=== PATIENT | female | born 1980 | race Caucasian/White ===

== ENCOUNTER 2023-05-21 15:22 | Emergency (ER) | payer BC ==
[~2023-05-21] VITALS: Ht 157.5 cm; Wt 59.0 kg
[2023-05-21 16:40] VITALS: PULSE 97; RESP 21; O2SAT 97
[2023-05-21] MEDS: IPRATROPIUM BROMIDE (0.02%) 0.5MG/2.5ML NEB HHN STA (16:40)
[2023-05-21] MEDS: ALBUTEROL (0.083%) 2.5MG/3ML NEB HHN STA (16:40)
[2023-05-21 17:07] LABS: HEMATOCRIT. 43.6 % (36.0-48.0); MEAN CORPUSCULAR HGB CONC 34.5 g/dL (31.0-37.0); MEAN CORPUSCULAR VOLUME 84.1 fL (81.0-99.0); MEAN PLATELET VOLUME 8.9 fl (7.4-10.4); PLATELET 317 x1000/uL (130-400); RED BLOOD CELL COUNT 5.19 mill/uL (4.2-5.4); RED CELL DISTRIBUTION WIDTH 12.8 % (11.6-14.6); WHITE BLOOD COUNT 13.9 x1000/uL (4.5-11.0)
[2023-05-21 17:08] LABS: DIFFERENTIAL COMMENT 1
[2023-05-21 17:20] LABS: PLATELET ESTIMATE NORMAL
[2023-05-21 17:22] LABS: HCG SCREEN NEGATIVE
[2023-05-21] MEDS: SODIUM CHLORIDE 0.9% 1,000 ML IV ONE (17:22)
[2023-05-21 18:29] LABS: ALANINE AMINOTRANSFERASE 18 IU/L (10-49); ALBUMIN 4.7 g/dL (3.2-4.8); ASPARTATE AMINOTRANSFERASE 20 IU/L (<34); BILIRUBIN TOTAL 0.6 mg/dL (0.1-1.0); CALCIUM 8.7 mg/dL (8.7-10.4); CARBON DIOXIDE 22 mEq/L (21-32); CHLORIDE 106 mEq/L (98-107); GLUCOSE 175 mg/dL (70-105); POTASSIUM 3.4 mEq/L (3.5-5.1); PROTEIN TOTAL 7.1 g/dL (6.0-8.3); SODIUM 139 mEq/L (136-145); UREA NITROGEN BLOOD 12 mg/dL (9-23)
[2023-05-21 18:31] LABS: TROPONIN I HIGH SENSITIVITY < 4 ng/L (3.0-34)
[2023-05-21 18:44] LABS: BG CARBOXYHEMOGLOBIN 0.3 % (0.5-1.5); BG DEOXYHEMOGLOBIN 2.1 % (0.0-5.0); BG FRACTION INSPIRED OXYGEN 21; BG HCO3 ACT 20.2 mmol/L (22.0-26.0); BG METHEMOGLOBIN 0.3 % (0.0-1.5); BG OXYGEN SATURATION 97.9 % (92.0-98.5); BG OXYHEMOGLOBIN 97.3 % (94.0-97.0); BG PCO2 28.5 mmHg (35.0-45.0); BG PH 7.468 (7.350-7.450); BG PO2 102.9 mmHg (75.0-100.0); BG SAMPLE SITE RIGHT RADIAL; BG TOTAL HEMOGLOBIN 15.3 g/dL (12.0-18.0); BG VENT MODE ROOM AIR
[2023-05-21] MEDS: POTASSIUM CHLORIDE 20MEQ TABLET SR PO NR (18:56)
[2023-05-21] MEDS: IOHEXOL-350 100 ML BOTTLE ONE (21:12)
[2023-05-21] MEDS ORDERED: ALBU90AE INH (22:15)
[2023-05-21 22:27] VITALS: BP 110/80; PULSE 82; RESP 19; TEMP 97.8
== END 2023-05-21 22:29 | disposition home or self-care (01) ==
LOC: ER 15:22
DX: B34.9 Viral infection, unspecified (principal); Z20.822 Contact with and (suspected) exposure to COVID-19
CPT/HCPCS: 80053; 84703; 83880; 83605; 85025; 85379; 87420; 84484; 87804 ×2; 36415; 71045; 71275; 94640; 82805; 82375; 93005; 96360; 99285; 87426; 36600; Q9967; Z7610; J7030